=== PATIENT | female | born 1955 | race Two or more races ===

== ENCOUNTER 2024-05-31 17:42 | Emergency (ER) | payer OTHER ==
[~2024-05-31] VITALS: Ht 152.4 cm; Wt 95.3 kg
[2024-05-31] MEDS ORDERED: ATORVASTATIN CA10 MG PO (18:43)
[2024-05-31] MEDS ORDERED: LOSARTAN POTASS50 MG PO (18:43)
[2024-05-31] MEDS ORDERED: METOPROLOL SUC100 MG PO (18:44)
[2024-05-31] MEDS ORDERED: FUROsemide 20 MG/2 ML VIAL IV STA (21:39)
[2024-05-31] MEDS ORDERED: FAMOtidine 10 MG/ML (4ML VIAL) IV STA (21:40)
== END 2024-05-31 22:53 | disposition home or self-care (01) ==
LOC: ER 17:44
DX: R53.81 Other malaise (principal); R10.13 Epigastric pain; Z88.0 Allergy status to penicillin; Z88.6 Allergy status to analgesic agent
CPT/HCPCS: 96365; 99282; J1940; J3490

== ENCOUNTER 2024-06-03 12:04 | Inpatient (IN) | payer OTHER ==
[~2024-06-03] VITALS: Ht 152.4 cm; Wt 90.7 kg
[~2024-06-03 12:04] MED LIST: ATORVASTATIN CA10 MG PO; LOSARTAN POTASS50 MG PO; METOPROLOL SUC100 MG PO
[2024-06-03] MEDS ORDERED: FUROsemide 20 MG/2 ML VIAL IV STA (14:54)
[2024-06-03 15:44] LABS: HEMATOCRIT 41.6 % (36.0-45.00); HEMOGLOBIN 13.9 g/dL (12.0-15.00); MEAN CELL VOLUME 92.2 fL (80.00-100.00); MEAN CORPUSCULAR HEMOGLOBIN 30.7 pg (27.00-32.0); MEAN CORPUSCULAR HGB CONC 33.3 g/dl (32.0-36.0); PLATELET COUNT 236 K/uL (150-450); RED BLOOD COUNT 4.51 M/uL (4.00-6.00); RED CELL DISTRIBUTION WIDTH 14.8 % (11.5-14.5)
[2024-06-03 16:18] LABS: ALBUMIN 3.6 gm/dL (3.4-5.0); BILIRUBIN TOTAL 0.66 mg/dL (0.3-1.2); BILIRUBIN,CONJUGATED 0.21 mg/dL (0.0-0.2); BILIRUBIN,UNCONJUGATED 0.45 mg/dL (0.0-0.6); CALCIUM 9.2 mg/dL (8.5-10.1); CREATININE SERUM 0.91 mg/dL (0.55-1.02); GFR 61.66; POTASSIUM 3.36 mEq/L (3.5-5.1); TOTAL PROTEIN 6.5 gm/dL (6.4-8.2)
[2024-06-03 18:14] LABS: URINE APPEARANCE Clear; URINE BILIRRUBIN Negative (NEGATIVE); URINE BLOOD Negative; URINE COLOR Yellow; URINE GLUCOSE Negative (NEGATIVE); URINE KETONE Negative (NEGATIVE); URINE LEUKOCYTE Negative; URINE NITRATE Negative; URINE PROTEIN Negative (NEGATIVE); URINE UROBILINOGEN 0.2 E.U./dl
[2024-06-03 18:17] LABS: URINE BACTERIA 137.2 uL (0.0-1933); URINE WBC 8.1 uL (0.0-23.2)
[2024-06-03 18:33] LABS: URINE RBC 0.1 uL (0.0-20.8)
[2024-06-03] MEDS ORDERED: ENOXAPARIN SODIUM 80 MG/0.8 ML SYRINGE SUBCUTANEO SCH (20:42)
[2024-06-03] MEDS ORDERED: IPRATROPIUM BROMIDE 0.5 MG/2.5 ML AMPUL.NEB IH SCH (20:45)
[2024-06-03] MEDS ORDERED: AMIODARONE HCL 50 MG/ML AMPUL IV ONE (20:45)
[2024-06-03] MEDS ORDERED: FUROsemide 20 MG/2 ML VIAL IV SCH (21:00)
[2024-06-03] MEDS ORDERED: ACETAMINOPHEN 500 MG GEL..CAP PO PRN (21:00)
[2024-06-03] MEDS ORDERED: POTASSIUM CHLORIDE 20MEQ/100ML H2O PB IV ONE (21:00)
[2024-06-03] MEDS ORDERED: POTASSIUM BICARBONATE/CIT AC 25 MEQ TABLET.EFF PO ONE (21:00)
[2024-06-03] MEDS ORDERED: METOPROLOL TARTRATE 25 MG TABLET PO SCH (22:55)
[2024-06-03 23:40] VITALS: BP 146/104; O2SAT 95
[2024-06-04] VITALS (9 sets, daily range): BP systolic 136–184; BP diastolic 74–108; O2SAT 96–100
[2024-06-04] MEDS ORDERED: NITROGLYCERIN IN 5 % DEXTROSE 50 MG/250 ML BOTTLE IV SCH (00:10)
[2024-06-04 01:30] LABS: INR 1.09; PROTHROMBIN TIME 11.8 SECONDS (9.0-11.5)
[2024-06-04 01:32] LABS: D DIMER 0.43 MG/L; PARTIAL THROMBOPLASTIN TIME 29.6 SECONDS (22.0-34.0)
[2024-06-04] MEDS ORDERED: NITROGLYCERIN IN 5 % DEXTROSE 250 ML IV SCH (06:45)
[2024-06-04 08:24] LABS: CHOL HDL RATIO 3.1 (0-5.0); TSH 1.49 uIU/mL (0.358-3.74)
[2024-06-04] MEDS ORDERED: LOSARTAN POTASSIUM 25 MG TABLET PO SCH (09:00)
[2024-06-04] MEDS ORDERED: ATORVASTATIN CALCIUM 40 MG TABLET PO SCH (09:00)
[2024-06-04] MEDS ORDERED: FAMOTIDINE/PF 20 MG in 0.9 % SODIUM CHLORIDE 8 ML IV PUSH SCH (09:00)
[2024-06-04] MEDS ORDERED: ENOXAPARIN SODIUM 100 MG/ML SYRINGE SUBCUTANEO SCH (17:00)
[2024-06-04] MEDS ORDERED: DIGOXIN 0.25 MG/ML AMPUL IV SCH (21:26)
[2024-06-05] VITALS (12 sets, daily range): BP systolic 135–166; BP diastolic 64–104; O2SAT 9–100
[2024-06-05] MEDS ORDERED: METOPROLOL TARTRATE 25 MG TABLET PO SCH (01:00)
[2024-06-05 06:56] LABS: ALBUMIN 3.1 gm/dL (3.4-5.0); BILIRUBIN TOTAL 0.36 mg/dL (0.3-1.2); CALCIUM 8.5 mg/dL (8.5-10.1); CREATININE SERUM 0.86 mg/dL (0.55-1.02); GFR 65.81; GLOBULINA 2.7 G/DL (2.4-3.5); POTASSIUM 3.26 mEq/L (3.5-5.1); TOTAL PROTEIN 5.8 gm/dL (6.4-8.2)
[2024-06-05] MEDS ORDERED: METOPROLOL TARTRATE 50 MG TABLET PO SCH (09:00)
[2024-06-05] MEDS ORDERED: POTASSIUM BICARBONATE/CIT AC 25 MEQ TABLET.EFF PO SCH (13:00)
[2024-06-05] MEDS ORDERED: DOCUSATE SODIUM 100MG CAP PO STA (13:16)
[2024-06-05] MEDS ORDERED: DOCUSATE SODIUM 100MG CAP PO SCH (21:00)
[2024-06-05] MEDS ORDERED: DIGOXIN 0.125 MG TABLET PO SCH (22:30)
[2024-06-06] VITALS (11 sets, daily range): BP systolic 111–169; BP diastolic 11–90; O2SAT 94–100
[2024-06-06] MEDS ORDERED: METOPROLOL TARTRATE 50 MG TABLET PO SCH (01:00)
[2024-06-06] MEDS ORDERED: AMIODARONE HCL 200 MG TABLET PO SCH (09:00)
[2024-06-06] MEDS ORDERED: METOPROLOL TARTRATE 100 MG TABLET PO SCH (09:00)
[2024-06-06] MEDS ORDERED: DIGOXIN 0.25 MG/ML AMPUL IV NR (15:30)
[2024-06-06 20:55] LABS: CALCIUM 8.5 mg/dL (8.5-10.1); CREATININE SERUM 1.1 mg/dL (0.55-1.02); GFR 49.54; POTASSIUM 3.51 mEq/L (3.5-5.1)
[2024-06-06] MEDS ORDERED: DIGOXIN 0.25 MG/ML AMPUL IV SCH (21:00)
[2024-06-07] VITALS (12 sets, daily range): BP systolic 111–139; BP diastolic 64–84; O2SAT 96–498
[2024-06-07] MEDS ORDERED: DIGOXIN 0.125 MG TABLET PO SCH (09:00)
[2024-06-07] MEDS ORDERED: LACTULOSE 20 G/30 ML BLIST.PACK PO SCH (13:00)
[2024-06-07] MEDS ORDERED: AMIODARONE HCL 200 MG TABLET PO SCH (17:00)
[2024-06-07] MEDS ORDERED: ACETAMINOPHEN 500 MG GEL..CAP PO PRN (19:00)
[2024-06-07] MEDS ORDERED: TRAMADOL HCL 50 MG TABLET PO SCH (19:00)
[2024-06-08] VITALS (9 sets, daily range): BP systolic 137–164; BP diastolic 85–92; O2SAT 92–99
[2024-06-08 10:02] LABS: ALBUMIN 2.8 gm/dL (3.4-5.0); BILIRUBIN TOTAL 0.5 mg/dL (0.3-1.2); CREATININE SERUM 0.89 mg/dL (0.55-1.02); GFR 63.26; GLOBULINA 2.7 G/DL (2.4-3.5); POTASSIUM 3.66 mEq/L (3.5-5.1); TOTAL PROTEIN 5.5 gm/dL (6.4-8.2)
[2024-06-09 03:33] VITALS: BP 119/88; O2SAT 99
[2024-06-09 05:55] VITALS: O2SAT 98
[2024-06-09 06:06] LABS: HEMATOCRIT 42.3 % (36.0-45.00); HEMOGLOBIN 14.1 g/dL (12.0-15.00); MEAN CELL VOLUME 91.2 fL (80.00-100.00); MEAN CORPUSCULAR HEMOGLOBIN 30.3 pg (27.00-32.0); MEAN CORPUSCULAR HGB CONC 33.2 g/dl (32.0-36.0); PLATELET COUNT 178 K/uL (150-450); RED BLOOD COUNT 4.64 M/uL (4.00-6.00); RED CELL DISTRIBUTION WIDTH 14.2 % (11.5-14.5)
[2024-06-09 07:03] LABS: CALCIUM 9.1 mg/dL (8.5-10.1); CREATININE SERUM 0.78 mg/dL (0.55-1.02); GFR 73.66; POTASSIUM 3.92 mEq/L (3.5-5.1)
[2024-06-09 08:39] VITALS: BP 140/75; O2SAT 97
[2024-06-09] MEDS ORDERED: FUROsemide 20 MG/2 ML VIAL IV SCH (09:00)
[2024-06-09] MEDS ORDERED: DIGOXIN 0.25 MG TABLET PO SCH (09:00)
[2024-06-09 10:00] VITALS: O2SAT 95
[2024-06-09 13:09] VITALS: O2SAT 98
[2024-06-09 19:53] VITALS: BP 150/80
[2024-06-10] VITALS: O2SAT 94
[2024-06-10 02:29] VITALS: BP 138/95; O2SAT 95
[2024-06-10 05:34] VITALS: O2SAT 95
[2024-06-10 06:40] LABS: HEMATOCRIT 40.1 % (36.0-45.00); HEMOGLOBIN 13.7 g/dL (12.0-15.00); MEAN CELL VOLUME 89.7 fL (80.00-100.00); MEAN CORPUSCULAR HEMOGLOBIN 30.6 pg (27.00-32.0); MEAN CORPUSCULAR HGB CONC 34.2 g/dl (32.0-36.0); PLATELET COUNT 171 K/uL (150-450); RED BLOOD COUNT 4.47 M/uL (4.00-6.00); RED CELL DISTRIBUTION WIDTH 14.5 % (11.5-14.5)
[2024-06-10] MEDS ORDERED: LACTULOSE 20 G/30 ML BLIST.PACK PO SCH (09:00)
[2024-06-10 09:39] VITALS: BP 178/96; O2SAT 97
[2024-06-10 10:20] VITALS: O2SAT 99
== END 2024-06-10 11:58 | disposition home or self-care (01) | DRG 308 ==
LOC: ER 12:06 → ICU-2 21:04 → MEDJ 06-07 14:41
PROVIDERS: General Practice; Internal Medicine; ADMIT Internal Medicine; ATTEND Internal Medicine
PROC: B24BZZZ Ultrasonography of Heart with Aorta (ICD-10-PCS; principal; 2024-06-03)
PROC: 02HV33Z Insertion of Infusion Device into Superior Vena Cava, Percutaneous Approach (ICD-10-PCS; 2024-06-04)
PROC: BW28ZZZ Computerized Tomography (CT Scan) of Head (ICD-10-PCS; 2024-06-06)
PROC: 4A12X4Z Monitoring of Cardiac Electrical Activity, External Approach (ICD-10-PCS; 2024-06-07)
DX: I48.20 Chronic atrial fibrillation, unspecified (principal); I50.33 Acute on chronic diastolic (congestive) heart failure; I11.0 Hypertensive heart disease with heart failure; E78.5 Hyperlipidemia, unspecified; E66.01 Morbid (severe) obesity due to excess calories; I27.20 Pulmonary hypertension, unspecified